=== PATIENT | male | born 1935 | race Caucasian/White ===

== ENCOUNTER 2017-02-01 01:26 | Emergency (ER) | payer MEDICARE, MEDICAID ==
[~2017-02-01] VITALS: Ht 182.9 cm; Wt 65.9 kg
[2017-02-01 01:26] VITALS: BP 172/68; PULSE 60; RESP 19; O2SAT 99
[~2017-02-01 01:26] MED LIST: CARB1TAB14 PO; SIN10 PO
--- NOTE | 2017-02-01 01:50 | ED.REPORT ---
HPI-General Illness Date of Service Feb 01, 2017 ED Provider: Matt Mendez MD The pt is a 81 y/o male with a hx of Parkinson's who presents to the ED via EMS with multiple complaints. He recently started on a new Parkinson's medication, Rytary, and is concerned about having taken 12 pills altogether 2 days ago, instead of 4 pills 3 times a day as prescribed. He has also been unable to walk since yesterday. He typically uses a cane but has been experiencing difficulty standing up and maintaining his balance. Associated sx include numbness in toes bilaterally, sore throat and neck pain. He denies recent fall, back pain, headache, cough and shortness of breath. He also reports vision change and states he is seeing bubbles. The pt also complains of dysuria and a constant burning sensation in his throat , lips and tongue for the last 3 weeks. Neurologist: Dr. Castano Nursing Notes Stated Complaint: MEDICATION REACTION Chief Complaint: General Complaint Nursing Notes Reviewed: Yes Allergies: Coded Allergies: No Known Drug Allergies (Verified Allergy, Unknown, 12/21/13) Scheduled Carbidopa/Levodopa 25-100 mg (Carbidopa/Levodopa 25-100 mg) 1 Each Tablet 1 EACH PO TID Montelukast-Expunged Drug, Do Not Renew! (Singulair-Expunged Drug, Do Not Renew! ) 10 Mg Tablet 10 MG PO DAILY General Time Seen by MD: 01:48 Chief Complaint Multip medical complaints Hx Obtained From: Patient, Daughter Arrived By: Ambulance Sudden in Onset?: Yes Onset Occurred: Yesterday Symptom Duration: Since onset Severity: Current: No pain currently Severity: Maximum: No pain Recent Healthcare: Recent doctor visit Similar Sx Previous: No Past Medical History Past Medical History Parkinson's Past Surgical History Ear Smoking History Unknown if Ever Smoker Social History Other Social History: Good social support Ambulatory Status Cane Review of Systems Reports: burning sensation in the throat, tongue and lips Report: difficulty maintaining balance, standing up and walking. Full Review of Systems Ears / Nose / Throat: Reports: Sore throat Respiratory: Denies: Non-productive cough, Shortness of breath Male: Reports Dysuria Musculoskeletal: Reports: Neck pain, Denies: Back pain Neurologic: Reports: Numbness (in toes bilaterally), Vision change, Denies: Headache Complete sys rev & neg: except as marked. Physical Exam Vital Signs Vital Signs Date Time Temp Pulse Resp B/P Pulse Ox O2 Delivery O2 Flow Rate FiO2 02/01/17 04:36 61 14 166/57 100 Room Air 02/01/17 01:26 36.7 60 19 172/68 99 Room Air Initial VS: Reviewed Head / Eyes: Atraumatic, Normocephalic Neck: Supple, Non-tender, Full range of motion Respiratory: Breath sounds normal, Clear to auscultation, No respiratory distress Cardiovascular: Regular rate & rhythm, Heart sounds normal, Intact distal pulses Abdomen / GI: Soft, Non-tender Extremities: Vascular intact, Neuro intact, No swelling, No tenderness Skin: Warm, Dry, No cyanosis General/Constitutional: Awake, Alert, No acute distress, Cooperative ENT: Atraumatic, Airway patent, Pharynx NL Mouth: Positive: Mucous membranes dry Neurologic: Oriented X3, Speech NL, No motor deficits, No sensory deficits Hyper-reflexic. He has good leg strength. Sensation is intact grossly. Interpretation & Diagnostics Lab Results Interpretation Result Diagram: 02/01/17 0233 02/01/17 0233 Test 02/01/17 02:33 02/01/17 02:45 White Blood Count 5.9th/mm3 (3.8-10.1) Red Blood Count 4.56mil/mm3 (4.40-5.80) Hemoglobin 14.1g/dL (13.8-17.2) Hematocrit 39.3% (41.0-50.0) Mean Corpuscular Volume 86.2fL (81-100) Mean Corpuscular Hemoglobin 30.9pg (27.0-35.0) Mean Corpuscular Hemoglobin Concent 35.9% (32.0-37.0) Red Cell Distribution Width 12.5% (12.3-15.4) Platelet Count 168bil/L (150-400) Neutrophils (%) (Auto) 73.9% (40-74) Lymphocytes (%) (Auto) 15.8% (14-46) Monocytes (%) (Auto) 9.0% (4-12) Eosinophils (%) (Auto) 0.5% (0-5) Basophils (%) (Auto) 0.5% (0-3) Sodium Level 126mEq/L (134-144) Potassium Level 4.1mEq/L (3.5-5.2) Chloride Level 87mEq/L (97-108) Carbon Dioxide Level 26mmol/L (18-29) Blood Urea Nitrogen 20mg/dL (8-27) Creatinine 0.85mg/dL (0.76-1.27) Estimat Glomerular Filtration Rate 92mL/min (>59) Glucose Level 99mg/dL (60-99) Calcium Level 9.4mg/dL (8.5-10.1) Total Bilirubin 0.7mg/dL (0.0-1.2) Aspartate Amino Transf (AST/SGOT) 11U/L (0-50) Alanine Aminotransferase (ALT/SGPT) 8U/L (0-44) Alkaline Phosphatase 53U/L (25-160) Total Protein 7.0g/dL (6.4-8.4) Albumin 4.7g/dL (3.4-5.0) Urine Color Straw (YELLOW) Urine Appearance Hazy (CLEAR,HAZY) Urine pH 6.5 (5.0-8.0) Urine Specific [place] 1.010 (1.003-1.035) Urine Protein Negativemg/dL (NEG,TRACE) Urine Glucose (UA) Negativemg/dL (NEGATIVE) Urine Ketones Negativemg/dL (NEGATIVE) Urine Occult Blood Negative (NEGATIVE) Urine Nitrite Negative (NEGATIVE) Urine Bilirubin Negative (NEGATIVE) Urine Urobilinogen Normalmg/dL (NORMAL) Urine Leukocyte Esterase Negative (NEGATIVE) Urine RBC 0-2/hpf (0-2) Urine WBC 0-5/hpf (0-5) Urine Epithelial Cells Occasional/hpf (NONE-MOD) Urine Crystals None seen (NONE SEEN) Urine Bacteria None/hpf (NONE-FEW) Urine Hyaline Casts None/lpf (NONE) Urine Granular Casts None seen (NONE SEEN) Urine Waxy Casts None seen (NONE SEEN) Urine Red Blood Cell Casts None seen (NONE SEEN) Urine White Blood Cell Casts None seen (NONE SEEN) Urine Mucus None seen (None Seen) Urine Trichomonas None seen (NONE SEEN) Urine Yeast None (NONE SEEN) Urinalysis Comment None Urine Culture Reflexed Not indicated ECG Interpretation ECG Interpretation: Normal sinus rhythm. Rate 55. Left anterior fascicular block. Time: 02:25 Interpreted by: ED physician X-Ray Chest Interpretation Chest Xray Interpretation: No acute findings View: Portable, 1 view Interpretation / Wet Read by: Wet read ED physician Re-Eval/Medical Decision Med Decision/Clinical Course 81-year-old Parkinson's presents with multiple complaints including burning dysesthesias in his mouth, some dizziness and unsteadiness of gait, and significant anxiety. His concern was that his Parkinson's medicines have changed any was doing worse since then. These are merely time-released versions of carbidopa levodopa, which s he has been on for years. He is encouraged to discuss that with Dr. castano, and reserve med changes for his neurologist. His gait is a bit unsteady, but he navigates well with a walker and was given a walker for home use. Encouraged to take his time getting from a lying position to seated position, then seated to standing, with a good ten second count between changes of phase. Evaluation of his dysesthesias we will await neurology visit. Discharged with his family now in stable condition. Source of Hx: Old records Time of Eval: 03:45 Re-Evaluation/Progress Note: Rechecked pt. Discussed the plan to discharge the pt post a chest X-ray. The pt and his family understand and agree with the plan. Time of Eval: 04:16 Re-Evaluation/Progress Note: Rechecked pt. Discussed lab results, imaging results, diagnosis and plan to discharge. Pt understands and agrees with the plan. F/U instruction and RTER warning given. All questions addressed. Counseled Regarding: Diagnosis, Lab results, Need for follow-up, When/why to return to ED Discharge & Departure Primary Impression: Disequilibrium Additional Impressions: Parkinsons disease Neuropathic pain Disposition: Home Discharge Condition All VS Reviewed: Yes Condition: Stable Patient Instructions: Parkinson Disease (ED), Peripheral Neuropathy (ED) Additional Instructions: Call Dr. Castano this morning for follow-up as soon as that can be arranged. Your new medicine is just along release version of year-old medicine, and I tend to doubt it is directly responsible for your new symptoms. It is merely delivering your carbidopa levodopa over an extended period of time, rather than requiring frequent dosing. The burning pain in your mouth may be neuropathic in character. Dr. Castano may consider various possibilities for treating that, if it is persistent. Use a walker for all ambulation, as long as you are feeling unsteady. Return for any immediate issues. Referrals: Sanjuanita Valadez MD (PCP) Brant Castano MD Scribe Attestation Portions of this note were transcribed by Juan Pierce. I,, personally performed the history, physical exam and medical decision-making;I reviewed and confirmed the accuracy of the information in the transcribed note. Signed by Yi Singh. 02/01/17 copies to: Sanjuanita Valadez MD; Brant Castano MD, Christopher W MD Feb 01, 2017 01:50 Juan Pierce Feb 01, 2017 01:59
[2017-02-01] MEDS ORDERED: 0.9% Sodium Chloride 1,000 ML IV ONE (02:09)
[2017-02-01 02:47] LABS: BASOPHILS % (AUTO) 0.5 % (0-3); EOSINOPHILS % (AUTO) 0.5 % (0-5); Mean Corpuscular Hemoglobin 30.9 pg (27.0-35.0); Mean Corpuscular Volume 86.2 fL (81-100); NEUTROPHILS % (AUTO) 73.9 % (40-74); Platelet Count 168 bil/L (150-400)
[2017-02-01 03:07] LABS: APPEARANCE,URINE HAZY (CLEAR,HAZY); COLOR,URINE STRAW (YELLOW); OCCULT BLOOD,URINE NEGATIVE (NEGATIVE); PH,URINE 6.5 (5.0-8.0); UROBILINOGEN,URINE NORMAL (NORMAL)
[2017-02-01 04:36] VITALS: BP 166/57; PULSE 61; RESP 14; O2SAT 100
--- NOTE | 2017-02-01 09:04 | DRSVH ---
PROCEDURE: X-RAY CHEST ONE VIEW, PORTABLE ([id number]) INDICATIONS: weakness TECHNIQUE: One view of the chest was acquired. COMPARISON: [facility], , CHEST 2VW, 08/23/2012, 15:37. FINDINGS: Surgical changes and devices: None. Lungs and pleura: No pleural effusions or pneumothorax. Lungs are clear. Calcified granuloma invol ves the left lung base unchanged from prior exam. Mediastinum: Mediastinal contours are normal. Heart size is normal. Bones and chest wall: No suspicious bony abnormalities. Soft tissues appear unremarkable. IMPRESSION: No acute cardiopulmonary disease. Dictated by: Jarred Dobson [facility] Interpreted: Eyad Fonseca MD on 02/01/2017 at 9:03 Transcribed by: NIC on 02/01/2017 at 9:03 Approved by: Eyad Fonseca M.D. on 02/01/2017 at 11:42
== END 2017-02-01 04:37 | disposition home or self-care (01) ==
LOC: SED 01:26
DX: G20 Parkinson's disease (principal); M79.2 Neuralgia and neuritis, unspecified; F41.9 Anxiety disorder, unspecified; H53.9 Unspecified visual disturbance
CPT/HCPCS: 36415; 71010; 80053; 81000; 85025; 93005; 96360; 99285; J7030